=== PATIENT | male | born 1945 | race Caucasian/White ===

== ENCOUNTER 2020-08-03 10:04 | Outpatient (CLI) | payer OTHER | END 2020-08-03 10:09 | disposition home or self-care (01) | LOC: TOM 10:04 | PROVIDERS: ATTEND Internal Medicine | DX: J98.4 Other disorders of lung (principal) | CPT/HCPCS: 71260; Q9965 ==

== ENCOUNTER 2020-08-30 14:37 | Outpatient (CLI) | payer OTHER | END 2020-08-30 14:46 | disposition home or self-care (01) | LOC: SONOGRAMA 14:37 | PROVIDERS: ATTEND Internal Medicine Endocrinology, Diabetes & Metabolism | DX: E04.2 Nontoxic multinodular goiter (principal) ==

== ENCOUNTER 2020-10-04 08:01 | Outpatient (CLI) | payer OTHER | END 2020-10-04 08:10 | disposition home or self-care (01) | LOC: SONOGRAMA 08:01 | PROVIDERS: ATTEND Pathology Anatomic Pathology & Clinical Pathology | DX: D34 Benign neoplasm of thyroid gland (principal); E04.2 Nontoxic multinodular goiter; E04.1 Nontoxic single thyroid nodule; E04.8 Other specified nontoxic goiter; E07.89 Other specified disorders of thyroid ==

== ENCOUNTER 2021-03-20 13:26 | Outpatient (CLI) | payer OTHER | END 2021-03-20 13:42 | disposition home or self-care (01) | LOC: MRI 13:26 | PROVIDERS: ATTEND Rehabilitation Practitioner | DX: M17.12 Unilateral primary osteoarthritis, left knee (principal) | CPT/HCPCS: 73718 ==

== ENCOUNTER 2021-05-14 11:24 | Outpatient (CLI) | payer OTHER | END 2021-05-14 15:24 | disposition home or self-care (01) | LOC: TOM 11:24 | PROVIDERS: ATTEND Internal Medicine | DX: J98.4 Other disorders of lung (principal) ==